=== PATIENT | female | born 1970 | race Caucasian/White ===

== ENCOUNTER → 2020-04-24 10:59 | Outpatient (CLI) | payer OTHER, SELFPAY ==
--- NOTE | ~2020-04-24 | US_ITS ---
EXAMINATION: US soft tissue head and neck EXAM DATE: 04/24/2020 11:47 INDICATION: R22.1 - Localized swelling, mass and lump, neck. TECHNIQUE: Multiple grayscale and Doppler images of the symptomatic left cervical were obtained (by a technologist who performed the scan) and subsequently reviewed. There is no prior study for compari son. FINDINGS: There is complex cystic mass measuring 4.4 x 1.9 x 2.6 cm, most likely a necrotic lymph node. Differe ntial diagnosis includes metastatic lymphadenopathy, infection. Please clinically correlate and recom mend CT scan for further evaluation. ENT consult for histologic correlation is also indicated. IMPRESSION: Left cervical mass most likely enlarged necrotic lymph node. Recommend ENT consult, CT sc an, Reviewed, dictated and finalized at location B. CLOSER IMPRESSION: Left cervical mass most likely enlarged necrotic lymph node. Recomm end ENT consult, CT scan,
== END ==
PROVIDERS: PCP Family Medicine; Visit Provider Family Medicine
DX: R22.1 Localized swelling, mass and lump, neck (principal)
CPT/HCPCS: 76536

== ENCOUNTER → 2020-05-15 16:57 | Outpatient (CLI) | payer OTHER, SELFPAY ==
--- NOTE | ~2020-05-15 | MM_ITS ---
EXAMINATION: MM screening ava BI w ki HISTORY: Screening mammogram TECHNIQUE: Craniocaudal and mediolateral oblique 3-D tomosynthesis images were obtained and synthetic 2-D images were generated. CAD analysis was submitted and interpreted. COMPARISON: May 05, 2018, December 23, 2016, February 13, 2015 bilateral digital screening mammogr am examinations BREAST PARENCHYMAL COMPOSITION: There are scattered areas of fibroglandular density. FINDINGS: There is no evidence of suspicious mass, calcification, or architectural distortion to sugg est malignancy in either breast. There has been no suspicious interval change. IMPRESSION: 1. No mammographic evidence of malignancy. 2. Recommend routine screening mammography in one year. 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
== END ==
PROVIDERS: PCP Family Medicine; Visit Provider Obstetrics & Gynecology Gynecology
DX: Z12.31 Encounter for screening mammogram for malignant neoplasm of breast (principal)
CPT/HCPCS: 77063; 77067

== ENCOUNTER 2020-06-15 08:11 | Outpatient (CLI) | payer OTHER, SELFPAY ==
--- NOTE | ~2020-06-15 | CT_ITS ---
EXAMINATION: CT soft tissue neck w con EXAM DATE: 06/15/2020 08:46 INDICATION: R22.1 - Localized swelling, mass and lump, neck. TECHNIQUE: Spiral CT of the neck was performed following intravenous injection of 75 mL Omnipaque 350 . Axial, coronal and sagittal images were reviewed. The dose-length product (DLP) for this examinat ion was 459.26 mGy-cm. The exposure was tailored according to patient size (auto mA exposure control ), and iterative reconstruction (ASIR) was used as additional dose reduction technique. Correlation i s made to ultrasound 04/24/2020. FINDINGS: There is a complex cystic mass at the left internal jugular chain, mandibular angle measuri ng 2.6 cm greatest axial dimension, most likely a necrotic lymph node. Metastatic disease and infecti ous process can cause this finding assuming it is a lymph node. This is causing flattening of the lef t internal jugular vein without thrombus. Recommend ENT consult for surgical excision, histologic cor relation. No other evidence of lymphadenopathy. There is heterogeneous soft tissue density retrosternally, in the anterior mediastinum incompletely i fili and measuring 2.1 x 1.5 cm. Could be thymic residual, thymic cyst, thymoma, thymic carcinoma or germ cell tumor. Uncertain whether or not this could be potential primary source for the left cervic al lymph node. Chest CT with contrast is indicated. The thyroid gland is unremarkable. The submandibular and parotid glands are symmetric. The airway is unremarkable. Parapharyngeal and pre-glottic fat planes are preserved. There is a 4 mm aneurysm at the left M1 segment (sequence 3 image 6 minimal left carotid bulb arteria l sclerosis without stenosis. There are larger medial and inferior rectus bodies compared to the othe r rectus muscles, possible thyroid ophthalmoplegia. Visualized sinuses and mastoid air cells are wel l aerated. Mild apical scarring. There are no osteoblastic or osteolytic lesions identified. IMPRESSION: 1. Cystic mass most likely pathologically enlarged left level 2 lymph node; ENT consult for histolog ic correlation. 2. Incidental anterior mediastinal mass; chest CT with contrast recommended. 3. 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 Uncertain whether or not this would be treated prophylactically or watched with a follow-up CTA brain in one year. Neurosurgical consult. 4. Incidental mildly enlarged medial and inferior recti muscles bilaterally; possible thyroid ophtha lmoplegia. Reviewed, dictated and finalized at location A. IMPRESSION: 1. Cystic mass most likely pathologically enlarged left level 2 lymph node; EN T consult for histologic correlation. 2. Incidental anterior mediastinal mass; chest CT with contrast recommended. 3. 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 Uncertain whether or not this would be treated prophylactically or watched with a follow-up CTA brain in one year. Neurosurgical consult. 4. Incidental mildly enlarged medial and inferior recti muscles bilaterally; p ossible thyroid ophthalmoplegia.
== END 2020-06-15 08:12 | disposition home or self-care (01) ==
PROVIDERS: PCP Family Medicine; Visit Provider Otolaryngology
DX: R22.1 Localized swelling, mass and lump, neck (principal); I71.4 Abdominal aortic aneurysm, without rupture
CPT/HCPCS: 70491; Q9967

== ENCOUNTER 2020-06-18 11:35 | Outpatient (CLI) | payer OTHER, SELFPAY ==
--- NOTE | ~2020-06-18 | US_ITS ---
EXAMINATION: US biopsy lymph node DATE: 06/18/2020 12:29 INDICATION: Enlarged left cervical lymph node TECHNIQUE: The procedure including the risks and benefits was discussed with the patient. Risks discu ssed included bleeding and infection. The patient understood the risks and agreed to proceed. The sk in overlying the left neck and submandibular region was prepped and draped in usual sterile fashion. Anesthetic was administered with 1% lidocaine subcutaneously. An 18 gauge core biopsy needle was ad vanced under continuous ultrasound observation to the lesion of interest. 4 core biopsy specimens we re obtained. The needle was removed and the entry site was cleaned and dressed. Post procedure ultr asound demonstrated no hemorrhage. FINDINGS: Ultrasound images demonstrate a 4.3 x 1.7 x 2.5 cm high left jugular chain nodule of concer n likely representing an enlarged lymph node. The lesion demonstrates both solid hypoechoic regions w ith internal flow on color Doppler and likely necrotic anechoic cystic regions. Subsequent images dem onstrate biopsy needle advanced into the solid component of the nodule. IMPRESSION: 1. Successful Ultrasound-guided biopsy of the solid component of a 4.3 x 1.7 x 2.5 cm mixed solid and cystic likely metastatic and necrotic left high jugular chain lymph node. Reviewed, dictated and finalized at location A.
== END 2020-06-18 11:36 | disposition home or self-care (01) ==
PROVIDERS: PCP Family Medicine; Visit Provider Otolaryngology
DX: R59.9 Enlarged lymph nodes, unspecified (principal)
CPT/HCPCS: 38505; 76942; 88305; 88342

== ENCOUNTER 2021-02-18 09:00 | Outpatient (RCR) | payer OTHER, SELFPAY ==
--- NOTE | 2021-01-23 11:37 | PTOPEVAL ---
PHYSICAL THERAPY EVALUATION AND PLAN OF CARE 01-23-21 Thank you for referring Marleny Bustillos to [facility] She is scheduled to be seen for therapy? 2 x/week for 4 weeks. Please review, sign, date and return this plan of care AVELINO. I agree with and certify that the following plan of care is medically necessary. Referring Physician Date Attending Provider: Earl Arnold MD *PT Outpatient Evaluation Document 01/23/21 10:25 GEORGES (Rec: 01/23/21 11:37 GEORGES [id number]) Outpatient Past Medical History Past Medical History Source of Past Medical History Patient Neurological History Hx Neurological Disorders No Significant History Cardiovascular History Hx Cardiac Disorders No Significant History Respiratory History Hx Respiratory Disorders No Significant History Gastrointestinal History Hx Gastrointestinal Disorders No Significant History Genitourinary History Hx Genitourinary Disorders No Significant History Musculoskeletal History Hx Musculoskeletal Disorders No Significant History Endocrine History Hx Endocrine Disorders No Significant History HEENT History Hx HEENT Disorders No Significant History Other History Hx Cancer Yes Evaluation Information Problem Diagnosis lymphedema Onset January 04, 2021 Prior Level of Function Activity Level (Last 3 Months) 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 Hand Dominance Right Activity of Daily Living Ability Independent Indoor/Home Mobility Independent Community Mobility Independent Stairs Ability Independent Functional Cognition (Planning, Shopping Independent , Taking Medications) Cooking Yes Cleaning Yes Laundry Yes Shopping Yes Driving Yes Comments Additional Prior Level of Function pt reports is doing all home, Comments self care and farming tasks Pain Assessment Timing of Pain Assessment Timing of Pain Assessment Assessment Pain Scale Pain Scale Used Numeric (1 - 10) Self Report Pain Assessment Bilateral Neck Reported Pain Level 4 Pain Description Tightness Pain Frequency Chronic,Continuous Other Pain Description tight and numb over R and L sides of neck Lowest Pain Intensity 4 Greatest Pain Intensity 4 Other Pain Aggravating Factors problems getting neck comfortable with sleeping; Pain Behaviors None Pain Score Pain Score 4: Self Report Additional Pain Score Comments L TMJ is tighter than R and
--- NOTE | 2021-02-18 09:57 | PTOPEVAL ---
PHYSICAL THERAPY RE-EVALUATION AND UPDATED PLAN OF CARE 02-18-21 Refer to the clinical summary below for her status today, compared to the initial evaluation. Education has been completed for self care and management of lymphedema. She is going to purchase the head/neck compression garment and is awaiting the insurance approval for the Flexitouch home intermittent compression pump. Her PT plan of care is for 0-2x/wk for 4 weeks. She is to call if there are any questions or if she needs additional appointments to return for more therapy in the next 4 weeks. Thank you for referring Marleny Bustillos to [facility].? Please review, sign, date and return this updated plan of care AVELINO. I agree with and certify that the following plan of care is medically necessary. Referring Physician Date Attending Provider: Earl Arnold MD Document 02/18/21 09:05 GEOREGS (Rec: 02/18/21 09:57 GEORGES [id number]) Assessment Status Re-evaluation Subjective Information Marleny reports: neck is better; Query Text:As Reported By Patient/ jaw pops, like it always has, Family but does not hurt; doing self massage and doing facial exercises; kinesiotape helps the neck; am going to order the compression garment ( sigvaris neck and mandible pad ); feels like she wants to do her things at home and contact us if she needs something; Pain Assessment Timing of Pain Assessment Timing of Pain Assessment Assessment Pain Scale Pain Scale Used Numeric (1 - 10) Self Report Pain Assessment Bilateral Neck Reported Pain Level 0 Pain Description Tightness Pain Frequency Chronic,Intermittent Other Pain Description tightness in neck Lowest Pain Intensity 0 Greatest Pain Intensity 8 Pain Aggravating Factors Exercise/Activity Other Pain Aggravating Factors doing more and being more active Pain Score Pain Score 0: Self Report Interventions Used Interventions Used By Clinicians Education Other Alleviating Interventions massage and rub neck; is not taking any pain meds Cervical and Lumbar ROM Cervical ROM Cervical ROM Comments sitting active cervical rotation R with reports tight and stretching on L side neck; rotation to L without report of tightness; extension no tightness in neck; - with opening mouth- reports tender in L TMJ Lymphedema Evaluation Skin Inspection
--- NOTE | 2021-04-03 14:26 | PCPTNOTE ---
PHYSICAL THERAPY DISCHARGE REPORT 04-03-21 Attending Provider: Earl Arnold MD Patient:Marleny Bustillos Date of :1970 Marleny has not returned for any further treatments since the reevaluation on 02/18/2021, therefore she will be discharged at this time. Refer to the reevaluation for her status at the last PT session. The goals were not addressed. Thank you for referring Mrs. Bustillos to [facility]. Please review, sign, date and return this discharge summary AVELINO. I have been updated about the patient's current status and I agree with discharge from the above service at this time. Referring Physician Date
== END 2021-04-04 08:23 | disposition home or self-care (01) ==
LOC: ANHPT 09:00
PROVIDERS: PCP Family Medicine
DX: I89.0 Lymphedema, not elsewhere classified (principal)
CPT/HCPCS: 97016; 97110; 97140; 97161

== ENCOUNTER → 2021-06-22 09:57 | Outpatient (CLI) | payer OTHER, SELFPAY ==
--- NOTE | ~2021-06-22 | DEXA_ITS ---
Bone Density Report Name: PATRICIA GONZALEZ Age: 50 Sex: Female Ethnicity: White Date of : 1970 Indication: postmenopausal; screening for osteoporosis; cancer; Referring Provider: Connor, [place] Study: Bone densitometry was performed. Exam Date: June 22, 2021 Accession number: [id number] Bone Density: Region BMD T-score Z-score Classification AP Spine (L1-L4) 0.936 -1.0 -0.2 Normal Femoral Neck (Left) 0.654 -1.8 -1.0 Osteopenia Total Hip (Left) 0.793 -1.2 -0.7 Osteopenia Femoral Neck (Right) 0.674 -1.6 -0.8 Osteopenia Total Hip (Right) 0.823 -1.0 -0.5 Normal Total Hip Mean 0.808 -1.1 -0.6 Osteopenia World Health Organization criteria for BMD impression classify patients as: Normal (T-score at or above -1.0), Osteopenia (T-score between -1.0 and -2.5), or Osteoporosis (T-score at or below -2.5). 10-year Fracture Risk(1): Major Osteoporotic Fracture 5.2% Hip Fracture 0.5% Reported Risk Factors: [place] (), Neck BMD=0.654, BMI=26.3 (1) FRAX(R) Version 3.08. Fracture probability calculated for an untreated patient. Fracture probability may be lower if the patient has received treatment. Clinical Information Provided by Patient: Has the following medical conditions: Cancer, Kidney ca -2021 Patient maximum height was 64.7 Menopause Age: 47 No regular weight bearing exercise Drinks caffeinated beverages Onset of menses at age 15 Number of children 3 Impression: The patient has low bone mass, based on the Left Femoral Neck T-score. The patient has an estimated ten-year risk of hip fracture of 0.5% and an estimated ten-year risk of major fracture of 5.2%, based on the WHO FRAX algorithm. Discussion: BONE DENSITY IS LOW AT ONE OR MORE SKELETAL SITES. This patient's lowest T-score is low at one or more skeletal sites. It meets the World Health Organization's (WHO) criteria for ?low bone mass? (T-score between -1.0 and -2.5). The patient's 10-year risk of fracture as calculated by FRAX is less than the threshold where pharmacological therapy is recommended by the National Osteoporosis Foundation (NOF). However, all treatment decisions require clinical judgment and consideration of individual patient factors, including patient preferences, comorbidities, previous drug use, risk factors not captured in the FRAX model (e.g., frailty, falls, vitamin D deficiency, increased bone turnover, interval significant decline in bone density) and possible under or overestimation of fracture risk by FRAX. The patient should follow a healthful lifestyle (good nutrition with adequate calcium and vitamin D, and appropriate weight-bearing exercise). Follow-Up: Consider repeating this study in 2 to 3 years to reassess this patient's status, or sooner if there is some new clinical indication. Reported b
--- NOTE | ~2021-06-22 | MM_ITS ---
EXAMINATION: MM screening ava BI w ki HISTORY: Screening TECHNIQUE: Craniocaudal and mediolateral oblique 3-D tomosynthesis images were obtained and synthetic 2-D images were generated. CAD analysis was submitted and interpreted. COMPARISON: Comparison to multiple prior studies sequentially, with oldest reviewed study dated 05/10. BREAST PARENCHYMAL COMPOSITION: There are scattered areas of fibroglandular density. FINDINGS: There is no evidence of suspicious mass, calcification, or architectural distortion to sugg est malignancy in either breast. There has been no suspicious interval change. IMPRESSION: 1. No mammographic evidence of malignancy. 2. Recommend routine screening mammography in one year. BI-RADS Category 1: Negative Reviewed, dictated and finalized at location A.
== END ==
PROVIDERS: PCP Family Medicine; Visit Provider Nurse Practitioner
DX: Z12.31 Encounter for screening mammogram for malignant neoplasm of breast (principal); Z78.0 Asymptomatic menopausal state; M85.89 Other specified disorders of bone density and structure, multiple sites
CPT/HCPCS: 77063; 77067; 77080

== ENCOUNTER → 2022-07-04 10:56 | Outpatient (CLI) | payer OTHER, SELFPAY ==
--- NOTE | ~2022-07-04 | MM_ITS ---
EXAMINATION: MM screening ava BI w ki HISTORY: Screening mammogram TECHNIQUE: Craniocaudal and mediolateral oblique 3-D tomosynthesis images were obtained and synthetic 2-D images were generated. CAD analysis was submitted and interpreted. COMPARISON: June 22, 2021, May 15, 2020, May 05, 2018 bilateral screening mammogram examina tions BREAST PARENCHYMAL COMPOSITION: There are scattered areas of fibroglandular density. FINDINGS: There is no evidence of suspicious mass, calcification, or architectural distortion to sugg est malignancy in either breast. There has been no suspicious interval change. IMPRESSION: 1. No mammographic evidence of malignancy. 2. Recommend routine screening mammography in one year. BI-RADS Category 1: Negative Reviewed, dictated and finalized at location A.
== END ==
PROVIDERS: PCP Obstetrics & Gynecology Gynecology; Visit Provider Nurse Practitioner
DX: Z12.31 Encounter for screening mammogram for malignant neoplasm of breast (principal)
CPT/HCPCS: 77063; 77067

== ENCOUNTER 2023-06-24 01:43 | Day surgery (SDC) | payer BC, SELFPAY ==
[2023-06-15 08:25] VITALS: BMI 31.0
--- NOTE | 2023-06-22 13:17 | SUR.PREOP ---
Patient called regarding upcoming procedure. Reviewed preop instructions, appointment times, and procedure prep.
[2023-06-24 13:20] VITALS: BP 148/76; PULSE 108; RESP 16; TEMP 36.5; O2SAT 98; BMI 32.1
[2023-06-24] MEDS: LACTATED RINGERS 1,000 ML 150 ML IV CONT (13:47)
--- NOTE | 2023-06-24 14:10 | P.PNAN_ITS ---
Anes - Initial Pre Proc Eval Procedure: Operation Date: 06/24/23 14:30 Proposed Procedures p Colonoscopy - Lyndon Padilla MD Date/Time: 06/24/23 14:10 Surgeon: Lyndon Padilla MD Pre Op Diagnosis: + cologuard, other fecal abnormalities Patient Data Age: 52 Gender: F Height: 1.63 m Weight: 84.9 kg Last Vital Signs Temp 97.7 F 06/24/23 13:20 Pulse 108 H 06/24/23 13:20 Resp 16 06/24/23 13:20 BP 148/76 H 06/24/23 13:20 Pulse Ox 98 06/24/23 13:20 O2 Del Method Room Air 06/24/23 13:20 Allergies Allergy/AdvReac Type Severity Reaction Status Date / Time NKDA Allergy Mild unkown Uncoded 06/24/23 13:28 Home Medications Medication Instructions Recorded Confirmed Type alendronate 70 mg tablet 70 mg PO WEEKLY #14 tabs 11/10/22 06/24/23 Rx furosemide 20 mg tablet See Rx Instructions .Route 03/10/23 06/24/23 Rx .COMPLEX #90 tabs Patient hx anesthesia problems: none Family hx anesthesia problems: none Results Review: All pre-operative results and documents have been reviewed as part of the pre- operative evaluation. [facility] Past Medical History Medical History (Updated 06/08/22 @ 23:13 by Carri Duncan MD) Dysplasia of cervix Hx LEEP (loop electrosurgical excision procedure), cervix, Palpable mass of neck Pulsatile neck mass Tobacco abuse Surgical History Surgical History (Updated 06/08/22 @ 23:11 by Carri Duncan MD) History of nephrectomy, right History of tonsillectomy Status post partial glossectomy Family History Family History Grandparent Breast cancer Social History Social History (Updated 05/30/22 @ 09:30 by Emily Mathis) Social History: Smoking packs per day: 1 Smoking cigarettes per day: 20.0 Years smoked: 10 Smoking pack-years: 10.00 Smoking status: Former smoker Tobacco type: cigarettes Second hand tobacco smoke exposure: Yes Alcohol intake: current Drinks per week: 2 Substance use: never Substance use type: does not use Living arrangements: alone Occupation/Education: occupation 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 Gender identity (if verbalized by the patient): Female Sexual Orientation (if Verbalized by the Patient): Straight or Heterosexual Anes - Eval Final PreProcedure Day of Procedure 06/24/23 14:10 Patient weight: obese Heart: regular rate and rhythm Lungs: clear to auscultation Airway: Mallampati scale class II Neurological: alert and oriented Last oral intake: >/= 8 hours ASA classification: III Emergent: no Anesthetic plan: proceed Anesthesia type and monitoring: general GIVS and standard monitoring Results Review: All pre-operative results and documents have been reviewed as part of the pre- operative evaluation. Informed Consent: The patient's anesthetic plan and its attendant risks and benefits were discussed with the patient/family/POA. Questions were solicited and answers provided to the satisfaction of the patient/family/POA.
--- NOTE | 2023-06-24 14:25 | PM.HPGS ---
History of Present Illness History of Present Illness Consent: Risks, benefits, and alternatives have been discussed and questions answered. Patient agrees to proceed with procedure. Chief complaint: + cologuard, other fecal abnormalities Narrative: Marleny Bustillos is a 52 year old female here for first colonoscopy, had + cologuard Review of Systems Review of Systems: All systems reviewed & are unremarkable except as noted in HPI and below PMFSH Past Medical History Medical History (Updated 06/24/23 @ 14:26 by Lyndon Padilla MD) Dysplasia of cervix Hx LEEP (loop electrosurgical excision procedure), cervix, Palpable mass of neck Positive colorectal cancer screening using Cologuard test Pulsatile neck mass Tobacco abuse Surgical History Surgical History (Updated 06/08/22 @ 23:11 by Carri Duncan MD) History of nephrectomy, right History of tonsillectomy Status post partial glossectomy Family History Family History Grandparent Breast cancer Social History Social History (Updated 05/30/22 @ 09:30 by Emily Mathis) Social History: Smoking packs per day: 1 Smoking cigarettes per day: 20.0 Years smoked: 10 Smoking pack-years: 10.00 Smoking status: Former smoker Tobacco type: cigarettes Second hand tobacco smoke exposure: Yes Alcohol intake: current Drinks per week: 2 Substance use: never Substance use type: does not use Living arrangements: alone Occupation/Education: occupation 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 Gender identity (if verbalized by the patient): Female Sexual Orientation (if Verbalized by the Patient): Straight or Heterosexual Meds Home Medications and Allergies Home Medications Medication Instructions Recorded Confirmed Type alendronate 70 mg tablet 70 mg PO WEEKLY #14 tabs 11/10/22 06/24/23 Rx furosemide 20 mg tablet See Rx Instructions .Route 03/10/23 06/24/23 Rx .COMPLEX #90 tabs Allergies Allergy/AdvReac Type Severity Reaction Status Date / Time NKDA Allergy Mild unkown Uncoded 06/24/23 13:28 Vital Signs Vital Signs - 24 hr 06/24/23 13:20 Temperature 97.7 F Pulse Rate 108 H Respiratory Rate 16 Blood Pressure 148/76 H Pulse Oximetry 98 Oxygen Delivery Room Air Exam Const: General: comfortable and no acute distress HENMT: Face/Nose/Sinus: Normal nares present Eyes: General: appearance normal, both eyes and all related structures Neck: Neck: no JVD Resp: Auscultation: clear to auscultation bilaterally Cardio: Rate: regular rate Rhythm: regular rhythm GI: Inspection: non-distended GI Palp: Yes Soft to palpation Skin: General skin exam: normal color Neuro: General: gait normal Speech: normal speech Extrem: General: normal to inspection Psych: Mental Status: mental status grossly normal Assessment and Plan Assessment and plan (1) Positive colorectal cancer screening using Cologuard test: Code(s): R19.5 - Other fecal abnormalities Status: Acute Assessment and Plan: colonoscopy
[2023-06-24 14:41] VITALS: BP 123/66; PULSE 90; RESP 18; O2SAT 98
[2023-06-24 14:51] VITALS: BP 116/74; PULSE 88; RESP 17; O2SAT 99
[2023-06-24 15:01] VITALS: BP 106/67; PULSE 78; RESP 18; O2SAT 97
== END 2023-06-24 15:16 | disposition home or self-care (01) ==
PROVIDERS: PCP Family Medicine; Visit Provider Internal Medicine Gastroenterology
PROC: 0DJD8ZZ Inspection of Lower Intestinal Tract, Via Natural or Artificial Opening Endoscopic (ICD-10-PCS; CPT 45378; principal; 2023-06-24 14:30)
DX: D12.3 Benign neoplasm of transverse colon (principal); D12.8 Benign neoplasm of rectum; K64.8 Other hemorrhoids; Z87.891 Personal history of nicotine dependence; E66.9 Obesity, unspecified; Z68.32 Body mass index [BMI] 32.0-32.9, adult
CPT/HCPCS: 45385; 88305; J2704; J7120

== ENCOUNTER 2023-08-12 12:44 | Outpatient (CLI) | payer BC, SELFPAY ==
--- NOTE | ~2023-08-12 | MM_ITS ---
EXAMINATION: MM screening ava BI w ki HISTORY: Screening TECHNIQUE: Craniocaudal and mediolateral oblique 3-D tomosynthesis images were obtained and synthetic 2-D images were generated. CAD analysis was submitted and interpreted. COMPARISON: Comparison to multiple prior studies sequentially, with oldest reviewed study dated 01/22. BREAST PARENCHYMAL COMPOSITION: Not dense: There are scattered areas of fibroglandular density. FINDINGS: There is no evidence of suspicious mass, calcification, or architectural distortion to sugg est malignancy in either breast. There has been no suspicious interval change. IMPRESSION: 1. No mammographic evidence of malignancy. 2. Recommend routine screening mammography in one year. BI-RADS Category 1: Negative Reviewed, dictated and finalized at location A.
== END 2023-08-12 12:45 ==
PROVIDERS: PCP Family Medicine; Visit Provider Nurse Practitioner
DX: Z12.31 Encounter for screening mammogram for malignant neoplasm of breast (principal)
CPT/HCPCS: 77063; 77067

== ENCOUNTER 2024-08-16 10:55 | Outpatient (CLI) | payer BC, SELFPAY ==
--- NOTE | ~2024-08-16 | MM_ITS ---
EXAMINATION: MM screening ava BI w ki HISTORY: Screening TECHNIQUE: Craniocaudal and mediolateral oblique 3-D tomosynthesis images were obtained and synthetic 2-D images were generated. CAD analysis was submitted and interpreted. COMPARISON: Comparison to multiple prior studies sequentially, with oldest reviewed study dated 05/2016. BREAST PARENCHYMAL COMPOSITION: Not dense: There are scattered areas of fibroglandular density. FINDINGS: There is no evidence of suspicious mass, calcification, or architectural distortion to sugg est malignancy in either breast. There has been no suspicious interval change. IMPRESSION: 1. No mammographic evidence of malignancy. 2. Recommend routine screening mammography in one year. BI-RADS Category 1: Negative Reviewed, dictated and finalized at location A.
== END 2024-08-16 10:56 | disposition home or self-care (01) ==
PROVIDERS: PCP Family Medicine; Visit Provider Obstetrics & Gynecology Gynecology
DX: Z12.31 Encounter for screening mammogram for malignant neoplasm of breast (principal)
CPT/HCPCS: 77063; 77067